=== PATIENT | male | born 1960 | race Caucasian/White ===

== ENCOUNTER 2018-01-25 22:33 | Inpatient (IN) | payer OTHER ==
[~2018-01-25] VITALS: Ht 172.7 cm; Wt 79.9 kg
--- NOTE | 2018-01-26 00:46 | NUR ---
Pt on unit by lottie. Pt able to ambulate from [place] to bed. Steady gait. A&Ox4 and able to make needs known. Oriented pt to unit and educated pt on use of call light and bed alarm. Pt verbalized understanding. Skin check done and photos taken. No signs of discomfort or distress. No SOB. Pt currently resting comfortably in bed. Bed alarm on, call light within reach, will continue to monitor.
[2018-01-26 00:51] VITALS: Ht 172.7 cm; Wt 79.9 kg
[2018-01-26] MEDS ORDERED: PANT40TA3 PO (01:08)
[2018-01-26] MEDS ORDERED: CARV6.25 PO (01:12)
[2018-01-26] MEDS ORDERED: SUCR1TAB56 PO (01:13)
[2018-01-26 01:22] VITALS: BP 141/86; PULSE 86; RESP 18
--- NOTE | 2018-01-26 01:25 | NUR ---
Attempted to contact Dr. Rhoades for admission orders. Left message requesting a callback. Will follow up. Continuing to monitor pt.
[2018-01-26 02:00] VITALS: BP 142/78; PULSE 84; RESP 17
[2018-01-26] MEDS ORDERED: ACETAMINOPHEN 325 MG TAB PO PRN (02:00)
[2018-01-26] MEDS: SOD CHLORIDE 0.9% 1,000 ML IV SCH ×2 (02:36→20:58)
[2018-01-26] MEDS: morphine 4 MG/ML VIAL IV PRN ×4 (03:06→20:57)
[2018-01-26] MEDS: PANTOPRAZOLE (EC) 40 MG TAB PO SCH ×2 (05:43→17:54)
[2018-01-26] MEDS ORDERED: [UNRECOGNIZED DRUG - CODE] PO (05:49)
[2018-01-26] MEDS ORDERED: ALPR2TAB PO (05:50)
[2018-01-26] MEDS ORDERED: SIMV20TA2 PO (05:51)
--- NOTE | 2018-01-26 06:07 | NUR ---
No acute changes during shift. Pt safe and free from injury. Pt is ambulatory, A&Ox4. Pt's pain was assessed and controlled during shift. Pt tolerating clear liquid diet. Pt denies any nausea. No bowel movement during shift. No signs of discomfort or distress. No SOB. Pt is currently sleeping comfortably in bed. Bed alarm on, call light within reach. Will continue to monitor.
[2018-01-26 08:12] VITALS: BP 144/76; PULSE 73; RESP 18
[2018-01-26] MEDS: SUCRALFATE 1 GM TAB PO SCH ×2 (08:31→20:56)
--- NOTE | 2018-01-26 11:07 | HP ---
Date/Time of Note Date/Time of Note DATE: 01/26/18 TIME: 11:07 Assessment/Plan VTE Prophylaxis Risk score (from Ns)>0 risk: 1 SCD applied (from Ns): Yes SCD contraindicated: low risk/ambulating Pharmacological prophylaxis: NA/contraindicated Pharm contraindication: low risk/ambulating Lines/Catheters IV Catheter Type (from [facility]): Peripheral IV Urinary Cath still in place: No Assessment/Plan Hospital Course 1. Abdominal pain. 2. History of nausea, vomiting, and diarrhea 3. Anemia 4. History of hiatal hernia with esophagitis. S/p esophageal hernia repair 03/2017 5. History of hypertension 6. Hx of cholecystectomy 2013 7. Hem positive per [place] record Assessment/Plan GI consult , called GI prophylaxis Protonix BID DVT prophylaxis SCD bilaterally Continue home medications Start Ferrlecit H. pylori IgG Pain management HPI/ROS Admit Date/Time Admit Date/Time Jan 26, 2018 at 00:25 Hx of Present Illness This 57-year-old male with history of GERD, hypertension, anxiety, hyperlipidemia, esophagitis, and esophageal hernia repair 03/2017, presented to emergency department of [facility] with epigastric abdominal pain for 1 week, constant nausea, and dark colored diarrhea. Previously he came to emergency room on January 16, 2018 and had extensive workup including labs, chest x-ray, CT abdomen and pelvis without contrast. CMP is normal, troponin is normal, CBC revealed anemia. Hemoglobin 9.1 hematocrit 33.8, platelets 360, WBC 8.0. Stool for occult blood is positive. CT scan results are not available. He received the GI cocktail, [place] but patient reports that he still have epigastric pain despite the medication. Denies any other symptoms, no melena. He has scheduled appointment with his GI specialist on February 28, 2018 for endoscopy. Patient was transferred today from [facility] today with symptoms nausea, vomiting, and diarrhea for the insurance purposes. ROS Eyes: no complaints ENT: no complaints Respiratory: no complaints Cardiovascular: no complaints Gastrointestinal: no complaints, pain, blood, constipation, decreased appetite, diarrhea, flatus, nausea, passing stool, vomiting, other Genitourinary: discharge, flank pain; No no complaints, No bleeding, No dysuria, No hematuria, No other Skin: no complaints PMH/Family/Social Past Medical History Medical History: hypertension Coded Allergies: No Known Allergies (Verified Allergy, Unknown, 01/26/18) Pt denies any allergies Past Surgical History Past Surgical Hx: cholecystectomy, other (esophageal hernia repair 03/2017) Social History Smoking Status: Never smoker Exam/Review of Systems Vital Signs Vitals Vital Signs Date Temp Pulse Resp B/P (MAP) Pulse Ox O2 O2 Flow FiO2 Time Delivery Rate 01/26/18 98.2 73 18 144/76 96 Room Air 08:12 (98) Intake and Output 01/25/18 01/25/18 01/26/18 1515:00 23:00 07:00 IntakeIntake Total 1350 ml BalanceBalance 1350 ml Exam Constitutional: alert, oriented Psych: no complaints Head: normocephalic ENMT: nl external ears & nose Respiratory: clear to auscultation, normal air movement Cardiovascular: regular rate and rhythm Gastrointestinal: soft, nl liver, spleen, non-tender, ascites, bowel sounds, distended, firm, hepatomegaly, mass, rebound or guarding, splenomegaly, surgical scars, tender, other Genitourinary - Male: CVA tenderness; No nl penis, No nl scrotum, No discharge, No other Neurological: BOX GLUER II-XII intact Medications Medications Current Medications Carvedilol (Coreg) 6.25 mg BID PO Last administered on 01/26/18at 08:31; Admin Dose 6.25 MG; Start 01/26/18 at 09:00 Pantoprazole (Protonix Tab) 40 mg BID@0600,1800 PO Last administered on 01/26/18at 05:43; Admin Dose 40 MG; Start 01/26/18 at 06:00 Sucralfate (Carafate) 1 gm BID PO Last administered on 01/26/18at 08:31; Admin Dose 1 GM; Start 01/26/18 at 09:00 Sodium Chloride 1,000 ml @ 50 mls/hr Q20H IV Last administered on 01/26/18at 02:36; Admin Dose 50 MLS/HR; Start 01/26/18 at 02:00 Acetaminophen (Tylenol Tab) 650 mg Q6H PRN PO MILD PAIN(1-3)OR ELEVATED TEMP; Start 01/26/18 at 02:00 Morphine Sulfate (morphine) 2 mg Q4H PRN IV SEVERE PAIN LEVEL 7-10 Last administered on 01/26/18at 07:27; Admin Dose 2 MG; Start 01/26/18 at 02:00 Results Result Diagram: 01/26/18 0445 01/26/18 0445 Results 24 hrs Laboratory Tests Test 01/26/18 04:45 White Blood Count 8.4 Red Blood Count 4.54 L Hemoglobin 8.6 L Hematocrit 31.9 L Mean Corpuscular Volume 70.3 L Mean Corpuscular Hemoglobin 18.9 L Mean Corpuscular Hemoglobin Concent 27.0 L Red Cell Distribution Width 19.3 H Platelet Count 327 Mean Platelet Volume 9.5 Immature Granulocytes % 0.200 Neutrophils % 74.8 Lymphocytes % 15.7 Monocytes % 6.8 Eosinophils % 1.5 Basophils % 1.0 Nucleated Red Blood Cells % 0.0 Immature Granulocytes # 0.020 Neutrophils # 6.3 Lymphocytes # 1.3 Monocytes # 0.6 Eosinophils # 0.1 Basophils # 0.1 Nucleated Red Blood Cells # 0.0 Sodium Level 141 Potassium Level 4.8 Chloride Level 101 Carbon Dioxide Level 31 Anion Gap 9 Blood Urea Nitrogen 13 Creatinine 1.10 Est Glomerular Filtrat Rate mL/min > 60 Glucose Level 140 Calcium Level 8.4 ARPIT MYERS Jan 26, 2018 11:07
--- NOTE | 2018-01-26 11:32 | NUR ---
SS Note: AHCD Consult SWer met w/ pt at bedside to discuss AHCD options and utilization. SWer introduced self, clarified role and stated reason for visiting, pt acknowledged. Pt accepted AHCD form and education but, has not designated/appointed an alternate person to make healthcare decisions in the event he's incapable of making said decisions. Pt plans to discuss options w/ a family member and submit the form at a later date. CM aware, SWer to remain available for f/u and assistance as needed.
[2018-01-26] MEDS: ONDANSETRON (ODT) 4 MG TAB ODT PRN (14:02)
[2018-01-26 14:47] VITALS: BP 133/76; PULSE 94; RESP 18
--- NOTE | 2018-01-26 18:13 | NUR ---
RN NOTE Patient resting in bed. Verbalized no concerns at this time. No SOB or acute distress noted. Call light within reach. MD aware of patient status. Will continue to monitor until end of shift and endorse report, pending input/output, IV intake and pending orders to incoming RN for continuity of care.
[2018-01-26 20:28] VITALS: BP 138/78; PULSE 71; RESP 17
[2018-01-27 02:00] VITALS: BP 140/73; PULSE 78; RESP 17
[2018-01-27] MEDS: morphine 4 MG/ML VIAL IV PRN ×4 (02:58→21:16)
[2018-01-27] MEDS: PANTOPRAZOLE (EC) 40 MG TAB PO SCH ×2 (05:11→17:56)
--- NOTE | 2018-01-27 06:30 | NUR ---
No acute changes during shift. Pt safe and free from injury. Pt is ambulatory, A&Ox4. Pt's pain was assessed and controlled during shift. Pt tolerating full liquid diet. Pt denies any nausea. No signs of discomfort or distress. No SOB. Pt is currently sleeping comfortably in bed. Bed alarm on, call light within reach. Will continue to monitor.
[2018-01-27 08:02] VITALS: BP 141/69; PULSE 72; RESP 16
[2018-01-27] MEDS: SUCRALFATE 1 GM TAB PO SCH ×2 (08:38→20:59)
--- NOTE | 2018-01-27 09:35 | PN ---
Date/Time of Note Date/Time of Note DATE: 01/27/18 TIME: 09:35 Assessment/Plan VTE Prophylaxis Risk score (from [facility])>0 risk: 2 SCD applied (from [facility]): Yes Pharmacological prophylaxis: NA/contraindicated Pharm contraindication: bleeding Lines/Catheters [facility] C[facility] Type (from [facility]): Peripheral IV Urinary Cath still in place: No Assessment/Plan Hospital Course 1. Abdominal pain. 2. History of nausea, vomiting, and diarrhea 3. Anemia 4. History of hiatal hernia with esophagitis. S/p esophageal hernia repair 03/2017 5. History of hypertension 6. Hx of cholecystectomy 2013 7. Hem positive per [place] record Assessment/Plan GI consult , pending GI prophylaxis Protonix BID DVT prophylaxis SCD bilaterally Continue home medications c/w Ferrlecit H. pylori IgG was cancelled? Pain management CT scan from [place] is pending Subjective 24 Hr Interval Summary Gastrointestinal: pain Exam/Review of Systems Vital Signs Vitals Vital Signs Date Temp Pulse Resp B/P (MAP) Pulse Ox O2 O2 Flow FiO2 Time Delivery Rate 01/27/18 98.2 72 16 141/69 98 08:02 (93) 01/26/18 Room Air 14:47 Intake and Output 01/26/18 01/26/18 01/27/18 1515:00 23:00 07:00 IntakeIntake Total 840 ml 1190 ml 1940 ml OutputOutput Total 1 ml BalanceBalance 840 ml 1190 ml 1939 ml Exam Constitutional: alert, oriented Respiratory: clear to auscultation Cardiovascular: regular rate and rhythm Gastrointestinal: soft Skin: other (surg. scars) ARPIT MYERS Jan 27, 2018 09:35
--- NOTE | 2018-01-27 14:57 | NUR ---
Patient on full liquid diet. However, patient's visitors will come with food, and patient will intake food such as clam chowder soup. educated that patient that he needs to stay on full liquid diet as MD ordered, however patient states that the hospital gave him clam chowder last night for his full liquid diet and is okay to eat it. I had told patient that clam and potatos are not considered full liquid and will upset his stomach even more. patient aware and will reassess.
--- NOTE | 2018-01-27 15:17 | CONS ---
DATE OF ADMISSION: 01/26/2018 DATE OF CONSULTATION: 01/27/2018 TYPE OF CONSULTATION: Surgical. REQUESTING PHYSICIAN: Tomy Salazar MD REASON FOR CONSULTATION: Evaluate the scalp sutures to remove them. HISTORY OF PRESENT ILLNESS: This is a 57-year-old gentleman who came to the emergency room because of abdominal pain, was admitted with a diagnosis of gastroesophageal reflux disease and was started on treatment. Meanwhile, the patient complained that he had hair transplant down on 01/08/2018 and he was supposed to go to the office of the surgeon and remove his sutures on 01/15/2018, but he has not been able to go there and he was concerned about the sutures to be removed; therefore, Dr. Salazar requested me to evaluate and remove the sutures. PAST MEDICAL HISTORY: History of gastroesophageal reflux disease and hiatal hernia. PAST SURGICAL HISTORY: Has had operation, fundoplication in [facility] some years ago, but still is bothering him and has not been successful. Also recent hair transplant. PHYSICAL EXAMINATION: Very limited. GENERAL: The patient is alert, awake, oriented x3. VITAL SIGNS: Temperature 98.4, heart rate 78, respirations 17, blood pressure 140/73, saturation 96% in room air. HEART: Regular. LUNGS: Clear. ABDOMEN: Soft. HEENT: His head was examined. There is evidence of surgery in the lower posterior part of the skull. There are left sutures in place in continuous running fashion. The wound is healed properly. LABORATORY DATA: Sodium, potassium, BUN, creatinine within normal limits. CBC: WBC 6000, hemoglobin 8.6 on admission, 8.2 today, hematocrit 30.2, differential 67%. The patient wants the sutures to be removed because he believes that is too late and he was told to be removed on 01/15/2018 and today is 01/27/2018. Therefore after cleansing the skin with alcohol, the sutures were completely removed. Wound was clean. No evidence of infection. PLAN: Care of abdominal pain per Dr. Salazar. Dictated By: JUANY MALLOY MD PS/NTS Conf#: [id number] DID#: [id number] CC: ASH FLOWERS MD; TOMY SALAZAR MD;*EndCC* MTDD
[2018-01-27 15:32] VITALS: BP 131/71; PULSE 76; RESP 16
[2018-01-27] MEDS: SOD FERRIC GLUC COMPLX 125 MG in SOD CHLORIDE 0.9% 100 ML IVPB SCH (16:45)
[2018-01-27] MEDS: SOD CHLORIDE 0.9% 1,000 ML IV SCH (16:45)
[2018-01-27] MEDS ORDERED: BISACODYL (EC) 5 MG TAB PO ONE ×2 (17:30→22:00)
--- NOTE | 2018-01-27 17:53 | CONS ---
DATE OF ADMISSION: 01/26/2018 DATE OF CONSULTATION: From Ash Tejada MD, to Tomy Salazar MD HISTORY OF PRESENT ILLNESS: The patient is a 57-year-old male who was at other facility for epigastr ic pain and heartburn. He was worked up with CAT scan of the abdomen and chest x-ray all were negati ve. GI consult was called in for persistent pain which has been there for the last 6 weeks. The pat ient never had a colonoscopy. No GI bleeding. No or LINE TENDER problem. He continues to have some naus ea and heartburn, history of Hughes esophagus and Saud fundoplication and after Saud fundoplicat ion, the patient had dysphagia and he said during last endoscopy they found hiatal hernia which he fan d it before surgery. PAST MEDICAL HISTORY: Hypertension. ALLERGIES: NONE. PAST SURGICAL HISTORY: Cholecystectomy and Saud fundoplication for Hughes's. PHYSICAL EXAMINATION: GENERAL: Well-built, nourished, not in distress. VITAL SIGNS: Stable. HEENT: Unremarkable. NECK: Supple. No thyromegaly, no lymphadenopathy. CARDIOVASCULAR: No murmur, gallop or click. LUNGS: Clear. ABDOMEN: Benign. EXTREMITIES: No edema. CENTRAL NERVOUS SYSTEM: Grossly within normal limits. IMPRESSION: 1. Microcytic hypochromic anemia. 2. Abdominal pain. 3. Saud fundoplication. 4. History of Hughes's esophagus. 5. Severe gastroesophageal reflux disease. 6. Hypertension. 7. History of cholecystectomy. 8. Gastrointestinal bleeding with positive . 9. Nausea and vomiting. PLAN: At this point, patient needs both EGD and colonoscopy. He never had a colonoscopy. Stool for occult blood is positive and he has got a severe microcytic hypochromic anemia. I discussed the emelyn e with the patient. The patient understood and he agreed and insisted on doing both the procedure. Dictated By: ASH RUBIN/SABRINA Conf#: [id number] DID#: [id number] CC: TOMY SALAZAR MD;*EndCC*
[2018-01-27] MEDS ORDERED: PEG/ELECTROLYTES 4L BTL PO ONE ×2 (18:30→20:00)
--- NOTE | 2018-01-27 19:00 | NUR ---
Patient alert and oriented x4. patient currently complains of pain and pain medication is given. fall precaution in place, call light within reach. patient will be goingfor EDG and colonoscopy procedure tomorrow and consent is signed in the chart. However, patient did not sign blood tranfusion due to needing clarification on it. patient stated that when he got blood transfusion before, the facility had told him that next time he gets a blood transfusion, he needs special blood. We had told him that we at the hospital take care of that however patient wants to make sure he gets that special blood. informed charge nurse to get MD talk to the patient to sign consent. will endorse to night nurse to follow up.
[2018-01-27 20:00] VITALS: BP 139/82; PULSE 77; RESP 18
[2018-01-27] MEDS: ONDANSETRON (ODT) 4 MG TAB ODT PRN (20:59)
[2018-01-27] MEDS: ZOLPIDEM 5 MG TAB PO PRN (22:12)
[2018-01-28] VITALS (17 sets, daily range): BP systolic 118–176; BP diastolic 62–90; PULSE 64–88; RESP 14–23
[2018-01-28] MEDS: morphine 4 MG/ML VIAL IV PRN ×5 (04:00→20:10)
[2018-01-28] MEDS: PANTOPRAZOLE (EC) 40 MG TAB PO SCH ×2 (05:33→17:01)
--- NOTE | 2018-01-28 06:08 | NUR ---
No acute changes during shift. Pt safe and free from injury. Pt is ambulatory, A&Ox4. Hourly rounding done and all needs attended to. Pt's pain was assessed and controlled during shift. Pt tolerated golytely. Currently NPO. Pt denies any nausea. No signs of discomfort or distress. No SOB. Pt is currently sleeping comfortably in bed. Bed alarm on, call light within reach. Will continue to monitor.
[2018-01-28] MEDS: SUCRALFATE 1 GM TAB PO SCH ×2 (08:17→20:17)
[2018-01-28] MEDS: SOD FERRIC GLUC COMPLX 125 MG in SOD CHLORIDE 0.9% 100 ML IVPB SCH (12:24)
[2018-01-28] MEDS: SOD CHLORIDE 0.9% 1,000 ML IV SCH (14:00)
--- NOTE | 2018-01-28 14:06 | NUR ---
RN NOTES Patient was just picked by transporter via wheelchair going to GI LAB for EGD and colonoscopy in stable condition.
--- NOTE | 2018-01-28 14:13 | PN ---
Date/Time of Note Date/Time of Note DATE: 01/28/18 TIME: 14:10 Assessment/Plan VTE Prophylaxis Risk score (from [facility])>0 risk: 2 SCD applied (from [facility]): Yes Pharmacological prophylaxis: NA/contraindicated Pharm contraindication: bleeding Lines/Catheters IV Catheter Type (from [facility]): Peripheral IV Urinary Cath still in place: No Assessment/Plan Hospital Course 57 y/o with 1. Abdominal pain with nausea, vomiting, and diarrhea 3. Anemia microcytic 4. History of hiatal hernia with esophagitis. S/p pavel fundoplication 03/2017 5. History of hypertension 6. Hx of cholecystectomy 2013 7. Hem positive per [place] record Assessment/Plan EGD and Colonoscopy today GI prophylaxis Protonix BID/ sucralfate DVT prophylaxis SCD bilaterally Continue home medications c/w Ferrlecit CT scan from [place] is pending Result Diagram: 01/28/18 0547 01/27/18 0520 Results 24hrs Laboratory Tests Test 01/28/18 05:47 01/28/18 08:31 White Blood Count 4.8 Red Blood Count 4.58 L Hemoglobin 8.5 L Hematocrit 31.7 L Mean Corpuscular Volume 69.2 L Mean Corpuscular Hemoglobin 18.6 L Mean Corpuscular Hemoglobin Concent 26.8 L Red Cell Distribution Width 18.7 H Platelet Count 305 Mean Platelet Volume 9.9 Immature Granulocytes % 0.200 Neutrophils % 58.4 Lymphocytes % 27.7 Monocytes % 7.9 Eosinophils % 3.5 Basophils % 2.3 H Nucleated Red Blood Cells % 0.0 Immature Granulocytes # 0.010 Neutrophils # 2.8 Lymphocytes # 1.3 Monocytes # 0.4 Eosinophils # 0.2 Basophils # 0.1 Nucleated Red Blood Cells # 0.0 Prothrombin Time 13.3 Prothrombin Time Ratio 1.0 INR International Normalized Ratio 1.00 Subjective 24 Hr Interval Summary Free Text/Dictation Pt going for EGD and colonoscopy today Exam/Review of Systems Vital Signs Vitals Vital Signs Date Temp Pulse Resp B/P (MAP) Pulse Ox O2 O2 Flow FiO2 Time Delivery Rate 01/28/18 97.6 64 18 120/62 95 Room Air 08:00 (81) Intake and Output 01/27/18 01/27/18 01/28/18 1515:00 23:00 07:00 IntakeIntake Total 2610 ml 500 ml BalanceBalance 2610 ml 500 ml Exam Constitutional: alert, oriented Respiratory: clear to auscultation Cardiovascular: regular rate and rhythm Gastrointestinal: soft Skin: other (surg. scars) Medications Medications Current Medications Carvedilol (Coreg) 6.25 mg BID PO Last administered on 01/27/18 21:00; Admin Dose 6.25 MG; Start 01/26/18 at 09:00 Pantoprazole (Protonix Tab) 40 mg BID@0600,1800 PO Last administered on 01/27/18 17:56; Admin Dose 40 MG; Start 01/26/18 at 06:00 Sucralfate (Carafate) 1 gm BID PO Last administered on 01/27/18 20:59; Admin Dose 1 GM; Start 01/26/18 at 09:00 Sodium Chloride 1,000 ml @ 50 mls/hr Q20H IV Last administered on 01/27/18 16:45; Admin Dose 50 MLS/HR; Start 01/26/18 at 02:00 Acetaminophen (Tylenol Tab) 650 mg Q6H PRN PO MILD PAIN(1-3)OR ELEVATED TEMP; Start 01/26/18 at 02:00 Morphine Sulfate (morphine) 2 mg Q4H PRN IV SEVERE PAIN LEVEL 7-10 Last administered on 01/28/18 12:24; Admin Dose 2 MG; Start 01/26/18 at 02:00 Ferric Sodium Gluconate Complex 125 mg/Sodium Chloride 110 ml @ 110 mls/hr DAILY@1300 IVPB Last administered on 01/28/18 12:24; Admin Dose 110 MLS/HR; Start 01/27/18 at 15:00; Stop 01/31/18 at 13:59 Ondansetron HCl (Zofran Odt) 4 mg Q6H PRN ODT NAUSEA Last administered on 01/27/18 20:59; Admin Dose 4 MG; Start 01/26/18 at 14:00 Zolpidem Tartrate (Ambien) 5 mg HS PRN PO INSOMNIA Last administered on 01/27/18 22:12; Admin Dose 5 MG; Start 01/27/18 at 18:00 DULCE CROUCH MD Jan 28, 2018 14:13
[2018-01-28] MEDS ORDERED: PROPOFOL 60 ML ONE (14:32)
--- NOTE | 2018-01-28 15:14 | NUR ---
Anesthesia Time: 1420 to 1514.
--- NOTE | 2018-01-28 15:22 | NUR ---
RD NOTES: Pt NPO for EGD/Colonoscopy today. RD Recommendations: 1. When medically feasible advance diet to Soft, low fiber.
--- NOTE | 2018-01-28 15:57 | NUR ---
PACU Time: 1504 to 1557.
--- NOTE | 2018-01-28 16:05 | NUR ---
RN NOTES Patient just came back from PACU, S/P EGD and COLONOSCOPY, alert and oriented, denies any nausea and vomiting but complained of pain. Morphine 2 mg IV was given as ordered. IV fluids restarted, patient is also started on full liquid diet. For labs in am. Will endorse to machinist 2nd shift for continuity of care.
--- NOTE | 2018-01-28 21:00 | NUR ---
Two female visitors at patient's bedside. Patient requesting update on current pain regimen. Informed patient that Dr. Rhoades was was called and MD agreed to increase his morphine dose for his pain. Patient verbalized understanding.
--- NOTE | 2018-01-28 21:15 | NUR ---
Received report from AIDAN Claire, that it smelled like marijuana in the patient's restroom when he assisted the patient to the bathroom. Walked by patient's room and smelled marijuana. Nursing Count Team Member, Kirsten, and security called to speak to patient.
--- NOTE | 2018-01-28 21:15 | NUR ---
Patient agreed to allow [facility] security to search his belongings. Hydrocodone prescription bottle found in patient's possession. Patient agreed to send medication down to pharmacy for safekeeping. Security also confiscated a small bag of powdery substance in patient room. Patient stated "you can throw that out. I do not know what that is." Confiscated by security to be discarded with patient's consent. Witnessed by Nursing Butadiene Converter HelperKirsten. Addendum: 01/29/18 at 0025 by ALEX ALEMAN RN Patient stated "I think my friend may have smoked pot in the restroom." Security called and visitor restriction form completed.
--- NOTE | 2018-01-28 22:15 | NUR ---
patient stated "I do not do any drugs. Please do not let the doctor take my pain medications. Tell him I will voluntarily take a drug screen test. I spoke to my friend who is a guide visitor and he told me to volunteer to take a drug test." Informed patient that we would notify Dr. Rhoades.
[2018-01-28] MEDS: ZOLPIDEM 5 MG TAB PO PRN (22:35)
[2018-01-29] MEDS: morphine 4 MG/ML VIAL IV PRN ×5 (01:06→23:29)
[2018-01-29 02:00] VITALS: BP 144/76; PULSE 89; RESP 19
[2018-01-29] MEDS ORDERED: HYDR-3609 PO (04:03)
[2018-01-29] MEDS: PANTOPRAZOLE (EC) 40 MG TAB PO SCH ×2 (05:15→17:29)
[2018-01-29] MEDS: SOD CHLORIDE 0.9% 1,000 ML IV SCH (05:15)
--- NOTE | 2018-01-29 07:15 | PN ---
Date/Time of Note Date/Time of Note DATE: 01/29/18 TIME: 07:02 Assessment/Plan VTE Prophylaxis Risk score (from [facility])>0 risk: 2 SCD applied (from [facility]): Yes Pharmacological prophylaxis: NA/contraindicated Pharm contraindication: bleeding Lines/Catheters IV Catheter Type (from [facility]): Peripheral IV Urinary Cath still in place: No Assessment/Plan Hospital Course 1. Microcytic hypochromic anemia. 2. Abdominal pain. 3. Saud fundoplication. 4. History of Hughes's esophagus. 5. Severe gastroesophageal reflux disease. 6. Hypertension. 7. History of cholecystectomy. 8. Gastrointestinal bleeding with positive FOB 9. Nausea and vomiting. 10. Hughes's esophagus 11. Esophageal ulcer 12. Hiatal hernia 13. 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 Positive for opiates and amphetemines S/P EGD/Colonoscopy 01/28: poor prep in colon, AVM noted in descending colon, EGD shows hiatal hernia, esophageal ulcer and Hughes's esophagus PLAN: Repeat colonoscopy tomorrow. Pt needs surgery for hiatal hernia. PPI BID Prn anti emetics Pt examined and plan of care discussed with Dr. Tejada Result Diagram: 01/28/18 0547 01/27/18 0520 Results 24hrs Laboratory Tests Test 01/28/18 08:31 01/29/18 00:45 Prothrombin Time 13.3 Prothrombin Time Ratio 1.0 INR International Normalized Ratio 1.00 Urine Opiates Screen Positive Urine Barbiturates Negative Urine Amphetamines Screen Positive Urine Benzodiazepines Screen Negative Urine Cocaine Screen Negative Urine Cannabinoids Negative Subjective 24 Hr Interval Summary Free Text/Dictation Continues to have abdominal pain. Would like to advance diet. Mild nausea. Exam/Review of Systems Vital Signs Vitals Vital Signs Date Temp Pulse Resp B/P (MAP) Pulse Ox O2 O2 Flow FiO2 Time Delivery Rate 01/29/18 98.3 89 19 144/76 93 02:00 (98) 01/28/18 Room Air 20:00 01/28/18 8.0 15:10 Intake and Output 01/28/18 01/28/18 01/29/18 1515:00 23:00 07:00 IntakeIntake Total 460 ml 400 ml 550 ml OutputOutput Total 800 ml BalanceBalance 460 ml 400 ml -250 ml Exam Constitutional: alert, oriented Psych: no complaints Eyes: PERRL ENMT: mucosa pink and moist Respiratory: clear to auscultation Cardiovascular: regular rate and rhythm Gastrointestinal: soft, tender Musculoskeletal: nl gait and stance Extremities: normal pulses Neurological: nl mental status Medications Medications Current Medications Carvedilol (Coreg) 6.25 mg BID PO Last administered on 01/28/18 20:18; Admin Dose 6.25 MG; Start 01/26/18 at 09:00 Pantoprazole (Protonix Tab) 40 mg BID@0600,1800 PO Last administered on 01/29/18 05:15; Admin Dose 40 MG; Start 01/26/18 at 06:00 Sucralfate (Carafate) 1 gm BID PO Last administered on 01/28/18 20:17; Admin Dose 1 GM; Start 01/26/18 at 09:00 Sodium Chloride 1,000 ml @ 50 mls/hr Q20H IV Last administered on 01/29/18 05:15; Admin Dose 50 MLS/HR; Start 01/26/18 at 02:00 Acetaminophen (Tylenol Tab) 650 mg Q6H PRN PO MILD PAIN(1-3)OR ELEVATED TEMP; Start 01/26/18 at 02:00 Morphine Sulfate (morphine) 2 mg Q4H PRN IV SEVERE PAIN LEVEL 7-10 Last administered on 01/28/18 20:10; Admin Dose 2 MG; Start 01/26/18 at 02:00 Ferric Sodium Gluconate Complex 125 mg/Sodium Chloride 110 ml @ 110 mls/hr DAILY@1300 IVPB Last administered on 01/28/18 12:24; Admin Dose 110 MLS/HR; Start 01/27/18 at 15:00; Stop 01/31/18 at 13:59 Ondansetron HCl (Zofran Odt) 4 mg Q6H PRN ODT NAUSEA Last administered on 01/27/18 20:59; Admin Dose 4 MG; Start 01/26/18 at 14:00 Zolpidem Tartrate (Ambien) 5 mg HS PRN PO INSOMNIA Last administered on 01/28/18 22:35; Admin Dose 5 MG; Start 01/27/18 at 18:00 Morphine Sulfate (morphine) 4 mg Q4H PRN IV SEVERE PAIN LEVEL 7-10 Last administered on 01/29/18 06:49; Admin Dose 4 MG; Start 01/28/18 at 21:00 RIANA HUI Jan 29, 2018 07:13
--- NOTE | 2018-01-29 07:29 | NUR ---
RN Notes Per Dr. Rhoades, patient may receive same medication regimen for pain. Ordered urine toxicology for per Dr. Rhoades. Patient's pain appears to be adequately controlled with increased Morphine. No further complaints of pain. Hourly rounding provided, patient's bed kept at lowest position with bed alarm activated for safety.
[2018-01-29 08:27] VITALS: BP 138/79; PULSE 64; RESP 18
[2018-01-29] MEDS: SUCRALFATE 1 GM TAB PO SCH ×2 (08:45→20:48)
[2018-01-29] MEDS: SOD FERRIC GLUC COMPLX 125 MG in SOD CHLORIDE 0.9% 100 ML IVPB SCH (13:16)
[2018-01-29 14:00] VITALS: BP 145/87; PULSE 74; RESP 17
[2018-01-29] MEDS ORDERED: BISACODYL (EC) 5 MG TAB PO ONE ×2 (17:00→20:00)
[2018-01-29] MEDS ORDERED: PEG/ELECTROLYTES 4L BTL PO ONE ×2 (17:00→20:00)
--- NOTE | 2018-01-29 17:33 | PN ---
Date/Time of Note Date/Time of Note DATE: 01/29/18 TIME: 17:31 Assessment/Plan VTE Prophylaxis Risk score (from [facility] [place])>0 risk: 2 SCD applied (from [facility] [place]): Yes SCD contraindicated: other Pharmacological prophylaxis: other Lines/Catheters IV Catheter Type (from [facility]): Peripheral IV Urinary Cath still in place: No Assessment/Plan Hospital Course 1. Abdominal pain better 3. Anemia microcytic 4. History of hiatal hernia with esophagitis. S/p pavel fundoplication 03/2017 5. History of hypertension 6. Hx of cholecystectomy 2013 7. Hem positive per [facility] record 8 s/p upper endoscopy plma ppi Result Diagram: 01/29/18 1429 01/27/18 0520 Results 24hrs Laboratory Tests Test 01/29/18 00:45 01/29/18 14:29 Urine Opiates Screen Positive Urine Barbiturates Negative Urine Amphetamines Screen Positive Urine Benzodiazepines Screen Negative Urine Cocaine Screen Negative Urine Cannabinoids Negative White Blood Count 6.7 # Red Blood Count 4.79 Hemoglobin 8.9 L Hematocrit 33.4 L Mean Corpuscular Volume 69.7 L Mean Corpuscular Hemoglobin 18.6 L Mean Corpuscular Hemoglobin Concent 26.6 L Red Cell Distribution Width 18.5 H Platelet Count 318 Mean Platelet Volume 9.6 Immature Granulocytes % 0.300 Neutrophils % 66.1 Lymphocytes % 22.1 Monocytes % 7.4 Eosinophils % 2.8 Basophils % 1.3 Nucleated Red Blood Cells % 0.0 Immature Granulocytes # 0.020 Neutrophils # 4.4 Lymphocytes # 1.5 Monocytes # 0.5 Eosinophils # 0.2 Basophils # 0.1 Nucleated Red Blood Cells # 0.0 Subjective 24 Hr Interval Summary Cardiovascular: no complaints Gastrointestinal: no complaints, other (abd pain +) Exam/Review of Systems Vital Signs Vitals Vital Signs Date Temp Pulse Resp B/P (MAP) Pulse Ox O2 O2 Flow FiO2 Time Delivery Rate 01/29/18 98.4 74 17 145/87 97 Room Air 14:00 (106) 01/28/18 8.0 15:10 Intake and Output 01/28/18 01/28/18 01/29/18 1414:59 22:59 06:59 IntakeIntake Total 460 ml 400 ml 600 ml OutputOutput Total 800 ml BalanceBalance 460 ml 400 ml -200 ml Exam Respiratory: clear to auscultation Cardiovascular: regular rate and rhythm Gastrointestinal: soft, bowel sounds Musculoskeletal: nl extremities to inspection Medications Medications Current Medications Carvedilol (Coreg) 6.25 mg BID PO Last administered on 01/29/18 08:46; Admin Dose 6.25 MG; Start 01/26/18 at 09:00 Pantoprazole (Protonix Tab) 40 mg BID@0600,1800 PO Last administered on 01/29/18 05:15; Admin Dose 40 MG; Start 01/26/18 at 06:00 Sucralfate (Carafate) 1 gm BID PO Last administered on 01/29/18 08:45; Admin Dose 1 GM; Start 01/26/18 at 09:00 Sodium Chloride 1,000 ml @ 50 mls/hr Q20H IV Last administered on 01/29/18 05:15; Admin Dose 50 MLS/HR; Start 01/26/18 at 02:00 Acetaminophen (Tylenol Tab) 650 mg Q6H PRN PO MILD PAIN(1-3)OR ELEVATED TEMP; Start 01/26/18 at 02:00 Morphine Sulfate (morphine) 2 mg Q4H PRN IV SEVERE PAIN LEVEL 7-10 Last administered on 01/28/18 20:10; Admin Dose 2 MG; Start 01/26/18 at 02:00 Ferric Sodium Gluconate Complex 125 mg/Sodium Chloride 110 ml @ 110 mls/hr DAILY@1300 IVPB Last administered on 01/29/18 13:16; Admin Dose 110 MLS/HR; Start 01/27/18 at 15:00; Stop 01/31/18 at 13:59 Ondansetron HCl (Zofran Odt) 4 mg Q6H PRN ODT NAUSEA Last administered on 01/27/18 20:59; Admin Dose 4 MG; Start 01/26/18 at 14:00 Zolpidem Tartrate (Ambien) 5 mg HS PRN PO INSOMNIA Last administered on 01/28/18 22:35; Admin Dose 5 MG; Start 01/27/18 at 18:00 Morphine Sulfate (morphine) 4 mg Q4H PRN IV SEVERE PAIN LEVEL 7-10 Last administered on 01/29/18 11:32; Admin Dose 4 MG; Start 01/28/18 at 21:00 Polyethylene Glycol/ Electrolytes (Golytely) 2,000 ml 2nd Dose (GI Prep) ONCE PO ; Start 01/29/18 at 20:00; Stop 01/29/18 at 20:01 Bisacodyl (Dulcolax) 10 mg 2nd Dose (GI Prep) ONCE PO ; Start 01/29/18 at 20:00; Stop 01/29/18 at 20:01 SERGEY SALAZAR MD Jan 29, 2018 17:33
--- NOTE | 2018-01-29 17:43 | NUR ---
RN NOTES Patient remained stable, pain controlled, vital signs stable all throughout the shift. Patient was seen by SYLVIA Bullock with orders made. Patient was started on Mechanical soft diet for breakfast lunch and dinner and then will be NPO post midnight. SYLVIA Whartont notify that patient will be repeating colonoscopy tomorrow. No definite time yet given. Golytely started as ordered, Dulcolax tablet 10 mg given as well. patient was given complete instructions about the golytely and verbalized understanding. Patient was also seen by Dr Rhoades today with no new order given. Consent secured for the procedure. Kept comfortable and safe. All needs attended. Due medications given. Will endorse to tapering machine operator for continuity of care.
[2018-01-29 20:15] VITALS: BP 152/76; PULSE 73; RESP 18
[2018-01-30] VITALS (10 sets, daily range): BP systolic 118–150; BP diastolic 60–84; PULSE 68–95; RESP 16–28
[2018-01-30] MEDS: ZOLPIDEM 5 MG TAB PO PRN (01:06)
[2018-01-30] MEDS: PANTOPRAZOLE (EC) 40 MG TAB PO SCH (05:27)
[2018-01-30] MEDS: SOD CHLORIDE 0.9% 1,000 ML IV SCH (06:05)
--- NOTE | 2018-01-30 06:54 | NUR ---
1915 Pt received aaox4 vital signs stable. Pt oriented to oncoming nurse and [facility] safety protocol including an active bed alarm & hourly rounding. Pt adamantly refused active bed alarm, charge nurse aware. Pt denies further questions/needs at this time. 1999 Second phase of bowel prep began, Pt reports "pooping clear." 0030 Pt request pain medication for abd pain 09/14 as well as a sleeping pill. Pt educated on the inability of the nurse to provide double narcotic dosages. Morphine 4mg administered as per pt request. Stated relief 30min post administration. Pt educated on NPO status for 1300 repeat colonoscopy. 0130 Pt request Ambien for difficulty sleeping, administered as ordered. 0230 Pt R forearm IV d/c due to leaking. New insertion 20G Left hand successful, patent, and running NS @ 50ml/hr. 0500 Pt laying oppositely in bed. (Feet where head belong, and head where feet belong.) Pt reports feeling restless, declines intervention. Vital stable. 0700 No significant changes throughout the night, nursing will endorse to day 4S shift nurse to ensure continuity of care.
[2018-01-30] MEDS: morphine 4 MG/ML VIAL IV PRN ×2 (08:52→14:24)
--- NOTE | 2018-01-30 10:18 | NUR ---
Pt taken down by wheelchair to GI lab for EGD/COLONOSCOPY. Vitals stable. Pt stated he wants to remove pants when he is downstairs. Will await pt return.
--- NOTE | 2018-01-30 11:58 | NUR ---
PACU: Received patient in pacu via [facility] drowsy vss, HOB @ semi meraz position, breathing with ease, lying left lateral , denies pain, will continue to monitor.
[2018-01-30] MEDS ORDERED: PROPOFOL 20 ML ONE (12:19)
--- NOTE | 2018-01-30 12:30 | NUR ---
PACU: Transferred patient back to the room via lottie adamss, HOB @ semi meraz position, breathing with ease, lying left lateral , denies pain.Report given KATE Andrse Addendum: 01/30/18 at 1314 by TANG PARKER RN PACU time : 1158- 1230 Sonja. Time: 1130- 1208
[2018-01-30] MEDS: SUCRALFATE 1 GM TAB PO SCH (12:39)
--- NOTE | 2018-01-30 13:07 | NUR ---
NRSG NOTE Pt returned to room 2237 from GI lab. BP elevated and morning BP meds given. Lunch tray ordered for pt as he was stating he was very hungry. Pt asked if he could order pizza. I will check with charge nurse and let pt know. Bed in lowest position and call light within reach.
--- NOTE | 2018-01-30 13:45 | PDOCDIS ---
Discharge Instructions DIAGNOSIS Discharge Diagnosis Diaphragmatic hernia. Hughes's esophagitis AVM in the colon Iron deficiency anemia CONDITION [id number] Patient Condition: [id number] Fair HOME CARE INSTRUCTIONS: [id number] Diet Instructions: [id number] Low Fat /Cholesterol [id number] Special Diet: Sissh3p BLAND DIET ACTIVITY: [id number] Activity Restrictions: [id number] Slowly Increase Activity Rest between Activity Avoid heavy lifting FOLLOW UP/APPOINTMENTS Follow-up Plan F/U PCP in 1-2 weeks f/u Dr Tejada in 2-3 weeks fore colonoscopy f/u Surgery as OPD for hernia DULCE CROUCH MD Jan 30, 2018 13:44
[2018-01-30] MEDS ORDERED: SUCR1TAB56 PO (13:49)
[2018-01-30] MEDS ORDERED: FER325 PO (13:49)
[2018-01-30] MEDS ORDERED: PANT40TA3 PO (13:49)
[2018-01-30] MEDS: SOD FERRIC GLUC COMPLX 125 MG in SOD CHLORIDE 0.9% 100 ML IVPB SCH (14:24)
--- NOTE | 2018-01-30 14:32 | DS ---
DATE OF ADMISSION: 01/26/2018 DATE OF DISCHARGE: 01/30/2018 HISTORY OF PRESENT ILLNESS AND HOSPITAL COURSE: A 57-year-old male with a history of GERD, hypertens ion, anxiety, hyperlipidemia, esophagitis, esophageal hernia repair 03/2017, presented to ED of [facility] with epigastric pain with constant nausea, dark colored diarrhea previously came to Emergency Room in January and extensive workup there showed CBC and anemia. Stool was positive, occult blood was positive. CT scans were not available. Received GI cocktail, [place], but the patient reported st ill having epigastric pain and was transferred due to insurance reasons. He had a scheduled appointm ent with the GI specialist 02/28/2018 for endoscopy. On admission, vital signs were stable. Labs sh owed hemoglobin of 8.6. BMP within normal limits. The patient was started on Protonix and also was started on sucralfate. The patient was seen by GI consultation with Dr. Tejada. The patient was hav ing microcytic hypochromic anemia and was also started on IV iron. The patient went for EGD versus p rep for both EGD and colonoscopy. He went for EGD on that showed a diaphragmatic hernia without obstruction or gangrene. Hughes's esophagitis, ulcer of esophagus with bleeding and patient was al so prepped for colonoscopy; however, patient had a poor prep and noted to have a small AVM in the col on. The patient was also prepped for colonoscopy the next day; however, the patient was ordering piz za while in the hospital. Colonoscopy was then again reattempted on 01/30/2018, however, it was poor prep and procedure was aborted. Final pathology came back active esophagitis with mucosal ulceratio n, granular tissue reaction. No pathogenic fungal organisms and/or mucosa. There is no evidence of malignancy per Dr. Tejada. The patient appears stable to be followed up by a GI specialist [facility] for [facility] colonoscopy. Hemoglobin was stable around 9.4. FINAL DISCHARGE DIAGNOSES: 1. Abdominal pain with nausea, vomiting, diarrhea, resolved. 2. Microcytic anemia. 3. Patient will be sent home on iron. 4. Status post EGD with diaphragmatic hernia without obstruction or gangrene. 5. Hughes's esophagus. 6. Ulcers of esophagus with bleeding. 7. AVM in the colonoscopy; however, patient was a poor prep and needs a colonoscopy as an outpatient . 8. History of cholecystectomy. 9. Hypertension. 9. U-tox positive for opiates and amphetamines. DISCHARGE CONDITION: Stable. DISCHARGE DIET: Low fat bland diet. DISCHARGE MEDICATIONS: 1. Percocet 1 tab q.6h. p.r.n. pain. 2. Iron sulfate 325 p.o. b.i.d. 3. Xanax 2 mg p.o. b.i.d. p.r.n. anxiety. 4. Coreg 6.25 b.i.d. 5. Methamphetamine 5 mg p.o. b.i.d. 6. Protonix 40 mg p.o. b.i.d. 7. Simvastatin 20. 8. Sucralfate 1 gram p.o. b.i.d. for 30 days. The patient was instructed to follow up with PCP in 1 to 2 weeks. Arrangement was made to follow up with Dr. Tejada in 1 to 2 weeks for a colonoscopy and also for surgery with the surgeon at [facility] . Dictated By: DULCE SCHERER/SABRINA Conf#: [id number] DID#: [id number] CC: SERGEY SALAZAR MD;*EndCC*
--- NOTE | 2018-01-30 15:02 | NUR ---
01/30/18 ORDER FF UP WITH [facility] , SPOKE TO PATIENT ALERT AND ORIENTED, PROVIDED HIM TEL # OF DR. FLOWERS TO CALL FOR APPOINTMENT. Addendum: 01/30/18 at 1503 by FEDERICO RUCKER Amended: Links added.
--- NOTE | 2018-01-30 16:51 | NUR ---
DISCHARGE NOTE IV D/C. Vitals stable. Pt own meds returned from pharmacy. Prescriptions given to pt. Discharge instructions given to pt and all stated was understood. Pt discharged from unit via wheelchair and volunteer. Pt to be discharged via taxi and taxi has been called.
== END 2018-01-30 16:50 | disposition home or self-care (01) | DRG 391 ==
LOC: PP2 01-26 00:25
PROVIDERS: ADMIT Internal Medicine Nephrology; ATTEND Internal Medicine Nephrology
PROC: 0DB58ZX Excision of Esophagus, Via Natural or Artificial Opening Endoscopic, Diagnostic (ICD-10-PCS; principal; 2018-01-28 15:00)
PROC: 0DJD8ZZ Inspection of Lower Intestinal Tract, Via Natural or Artificial Opening Endoscopic (ICD-10-PCS; 2018-01-28 15:00)
PROC: 0DJD8ZZ Inspection of Lower Intestinal Tract, Via Natural or Artificial Opening Endoscopic (ICD-10-PCS; 2018-01-30)
DX: K21.0 Gastro-esophageal reflux disease with esophagitis (principal); K22.11 Ulcer of esophagus with bleeding; D62 Acute posthemorrhagic anemia; K22.70 Barrett's esophagus without dysplasia; I10 Essential (primary) hypertension; E78.5 Hyperlipidemia, unspecified; K55.20 Angiodysplasia of colon without hemorrhage; K44.9 Diaphragmatic hernia without obstruction or gangrene; Z90.49 Acquired absence of other specified parts of digestive tract
CPT/HCPCS: 80048; 80307; 85025; 85610; 85730; 87081; 87338; 88305; 88312; 88313; J2270; J2916; J7030